=== PATIENT | male | born 1965 | race Caucasian/White ===

== ENCOUNTER 2017-09-01 05:39 | Outpatient (CLI) | payer BC, OTHER | END 2017-09-01 11:24 | LOC: PREOP 05:39 | PROVIDERS: ATTEND Internal Medicine | DX: Z01.818 Encounter for other preprocedural examination (principal); Z12.11 Encounter for screening for malignant neoplasm of colon ==

== ENCOUNTER 2017-09-08 07:51 | Day surgery (SDC) | payer BC, OTHER ==
--- NOTE | 2017-08-21 06:18 | HISTORY AND PHYSICAL ---
DATE OF SERVICE: DATE OF ADMISSION: September 08, 2017 HISTORY OF PRESENT ILLNESS: The patient is a 52-year-old white male, referred by Dr. Marianela Rod for his first screening colonoscopy. He had a friend, who sadly of colon cancer in his late 40s. He is not aware of any family history of colon cancer. He reports that he is well and he takes no medication. He denies any history of melena or bright red blood per rectum. He denies any problems with diarrhea or constipation. He reports no abdominal pain. PAST SURGICAL HISTORY: He has had endoscopic sinus surgery several decades ago and had a benign lipoma removed from his left upper arm. SOCIAL HISTORY: He works at [employer] with no past smoking history and occasional social alcohol intake. FAMILY HISTORY: Father is living with an age of 72 with a history of type 2 diabetes mellitus, diet controlled. Mother is living at age of 71. She was diagnosed with breast cancer in her 60s, but has no other health problems. PHYSICAL EXAMINATION: GENERAL: Reveals a well appearing, normal weight, white male in no acute distress. VITAL SIGNS: Blood pressure is 140/88. CHEST: Clear. CARDIOVASCULAR: Revealed a regular rate and rhythm without murmur, S3 or S4. ABDOMEN: Soft, supple without mass, organomegaly or tenderness. EXTREMITIES: Reveal no cyanosis, clubbing or edema. He has a well-healed surgical incision in the upper left arm. SKIN: Evaluation reveals no suspicious nevi. HEENT: He is a Mallampati class 2 oropharyngeal configuration. Pharynx is clear with good dentition. No erythema or exudate is noted. ASSESSMENT: The patient was set up for screening colonoscopy on September 08, 2017. Prep instructions were given and questions were answered. The patient reports that he has not had any previous screening blood studies done, so a chemistry panel, lipid panel and a PSA after discussion were ordered. Prep instructions with a Suprep kit were given. In today's evaluation, answering his questions about colonoscopy and going over prep instructions and then setting up the procedure. A little over 40 minutes of face to face care time was spent by myself and another 15 minutes of office staff time. I thank you for the referral of this pleasant gentleman. Job ID: [id number] DocumentID: [id number] Dictated Date: 08/17/2017 17:24:01 Manager Reimbursement Date: 08/17/2017 18:07:54 Dictated By: YASMEEN BARBOSA MD
[2017-09-08] MEDS ORDERED: 1/2 NS IV SOLUTION 1,000 ML IV STA (07:59)
[2017-09-08] MEDS ORDERED: MIDAZOLAM 2 MG/2 ML (VERSED) VIAL IVP PRN (08:00)
[2017-09-08] MEDS ORDERED: LIDOCAINE JELLY 2% (XYLOCAINE) 5 ML TUBE MM PRN (08:00)
[2017-09-08 08:10] VITALS: BP 132/92
--- OUTSIDE RECORDS SUMMARY | 2017-09-08 08:10 | XMS REPORT ---
Author FARAZ Copeland Organization [employer] Address Unknown Phone Unavailable Care Team Providers Care Orthopedic Assistant Name Role Phone FARAZ GARCIA CP Unavailable Allergies No Known Allergies Problems Problem Type Condition Code Onset Dates Condition Status Assessment Encounter for immunization Z23 Active Medications No Known Medications Procedures Procedure Coding System Code Date SINGLE IMMUNIZATION ADMIN CPT-4 56677 Aug 20, 2015 FLUARIX QUAD (3 & UP)-GSK-2014 CPT-4 11190 Aug 20, 2015 Results No Known Results Immunizations Vaccine Administration Date FLUARIX QUAD (3 & UP)-GSK-2014Aug 20, 2015 Summary Purpose [employer] Submission
--- NOTE | 2017-09-08 09:10 | Pre-Op Note & Conscious Sedat ---
Pre-Operative Progress Note H&P Reviewed The H&P was reviewed, patient examined and no changes noted. Date H&P Reviewed: Sep 08, 2017 Time H&P Reviewed: 09:10 Conscious Sedation Pre-Proced ASA Class: 1 Airway Mallampati Classification: ([place] appropriate class) I. II. III, IV Lungs Heart ASA score ASA 1: a normal healthy patient ASA 2: a patient with a mild systemic disease (mid diabetes, controlled hypertension, obesity ASA 3: a patient with a severe systemic disease that limits activity (angina , COPD, prior Myocardial infarction) ASA 4: a patient with an incapacitating disease that is a constant threat to life (CHF, renal failure) ASA 5: a moribund patient not expected to survive 24 hrs. (ruptured aneurysm) ASA 6: a declared brain patient whose organs are being harvested. For emergent operations, add the letter E after the classification Grade 2 Sedation Plan: Analgesia, Amnesia, Plan communicated to team members, Discussed options with patient/fam, Discussed risks with patient/fam Note The patient is an appropriate candidate to undergo the planned procedure, sedation, and anesthesia. The patient immediately re-assessed prior to indication. YASMEEN BARBOSA MD Sep 08, 2017 09:10
[2017-09-08] MEDS ORDERED: MIDAZOLAM 2 MG/2 ML (VERSED) VIAL ONE (09:28)
[2017-09-08] MEDS ORDERED: fentaNYL INJECTION 100 MCG/2 ML AMP ONE (09:28)
[2017-09-08] MEDS ORDERED: LIDOCAINE JELLY 2% (XYLOCAINE) 5 ML TUBE ONE (09:28)
[2017-09-08] MEDS: fentaNYL INJECTION 100 MCG/2 ML AMP IVP PRN ×2 (09:40→09:57)
[2017-09-08 10:40] VITALS: BP 121/71
[2017-09-08 11:05] VITALS: BP 139/96
[2017-09-08 11:35] VITALS: BP 139/96
--- NOTE | 2017-09-08 16:10 | OPERATIVE REPORT ---
DATE OF SERVICE: COLONOSCOPY SUMMARY The patient underwent screening colonoscopy today. The patient was placed in the left lateral decubitus position. Prior to undergoing colonoscopy, digital rectal evaluation was performed. Anal sphincter tone was normal and the perianal reflex was intact. Prostate was mildly enlarged, anodular and nontender to digital inspection. No abnormalities were noted on digital inspection of the anal canal or distal rectal vault. The colonoscope was then inserted into the rectum under direct visualization, advanced to the cecum. The cecum was identified by identification of the ileocecal valve and cecal strap. Photographic documentation was obtained. A careful inspection was made as the colonoscope was withdrawn. There was no evidence for internal or external hemorrhoids. The rectum was unremarkable. Present in the distal sigmoid colon as well as proximal sigmoid colon were 2 diminutive hyperplastic appearing polyps. They were photographed and biopsied and ablated and submitted for histopathology. There was no significant blood loss. No evidence for diverticular disease was noted. The descending colon, transverse colon, ascending colon and cecum were unremarkable. ASSESSMENT: Two diminutive hyperplastic appearing polyps were removed from the proximal and distal sigmoid colon today. This was an otherwise normal colonoscopy of the cecum. Digital evaluation of the prostate was compatible with mild benign prostatic hypertrophy. I would advocate consideration for repeat screening colonoscopy in 10 years as the patient is not aware of any family history of colon cancer or colon polyps. Job ID: [id number] DocumentID: [id number] Dictated Date: 09/08/2017 11:35:43 Aml Analyst Date: 09/08/2017 16:09:54 Dictated By: YASMEEN BARBOSA MD MTDD
== END 2017-09-08 11:35 | disposition home or self-care (01) ==
LOC: ENDO 07:51
PROVIDERS: ATTEND Internal Medicine
DX: Z12.11 Encounter for screening for malignant neoplasm of colon (principal); K63.5 Polyp of colon; N40.0 Benign prostatic hyperplasia without lower urinary tract symptoms

== ENCOUNTER 2022-11-11 07:37 | Day surgery (SDC) | payer BC ==
--- NOTE | 2022-11-02 07:29 | HISTORY AND PHYSICAL ---
DATE OF SERVICE: 11/11/2022 COLONOSCOPY HISTORY AND PHYSICAL HISTORY OF PRESENT ILLNESS: The patient is a 57-year-old white male here for screening colonoscopy. He is deemed at higher than average risk as his father was diagnosed with colon cancer in his late 70s. He had one another colonoscopy a little over 5 years ago, at which time he had several hyperplastic polyps removed. Early screening interval was recommended at 5 years due to family history. He reports there have been no health changes in the last 5 years. He has noted no blood in the stool. Denies abdominal pain, change in weights, shortness of breath or chest discomfort. PHYSICAL EXAMINATION: GENERAL: Reveals a white male who appeared to be in no acute distress. VITAL SIGNS: Blood pressure 130/82. HEENT: Unremarkable. Sclerae nonicteric. CHEST: Clear. CARDIAC: Reveals a regular rate and rhythm without murmur, S3, or S4. ABDOMEN: Soft, supple without mass, organomegaly, or tenderness. EXTREMITIES: Reveal no cyanosis, clubbing or edema. ASSESSMENT AND PLAN: The patient is being set up for a screening colonoscopy, prep instructions with Plenvu were given and questions were answered. Job ID: [id number] DocumentID: [id number] Dictated Date: 10/19/2022 16:08:46 Conference Planning Manager Date: 10/19/2022 16:26:00 Dictated By: YASMEEN BARBOSA MD
[~2022-11-11] VITALS: Ht 182.9 cm; Wt 90.9 kg
[2022-11-11] MEDS ORDERED: LACTATED RINGERS 1,000 ML IV STA (07:47)
--- NOTE | 2022-11-11 07:51 | Pre-Op Note & Conscious Sedat ---
Pre-Operative Progress Note Date H&P Reviewed: Nov 11, 2022 Time H&P Reviewed: 07:50 History & Physical: H&P Reviewed, Patient Examed, No changes noted Pre-Op Diagnosis: screening Conscious Sedation Pre-Proced ASA Score 1 For ASA 3 and 4: Consider anesthesia and medical clearance. Also, for patients with a history of failed moderate sedation consider anesthesia. Airway Lungs Heart ASA score ASA 1: a normal healthy patient ASA 2: a patient with a mild systemic disease (mid diabetes, controlled hypertension, obesity ASA 3: a patient with a severe systemic disease that limits activity (angina, COPD, prior Myocardial infarction) ASA 4: a patient with an incapacitating disease that is a constant threat to life (CHF, renal failure) ASA 5: a moribund patient not expected to survive 24 hrs. (ruptured aneurysm) ASA 6: a declared brain- patient whose organs are being harvested. For emergent operations, add the letter E after the classification Mallampati Classification Grade 2 Sedation Plan Analgesia, Amnesia, Plan communicated to team members, Discussed options with patient/fam, Discussed risks with patient/fam The patient is an appropriate candidate to undergo the planned procedure, sedation, and anesthesia. The patient immediately re-assessed prior to indication. YASMEEN BARBOSA MD Nov 11, 2022 07:51
[2022-11-11 07:55] VITALS: BP 178/84
[2022-11-11 09:01] VITALS: BP 118/67
--- NOTE | 2022-11-11 09:02 | Progress Note-Post Operative ---
Post-Procedure Note Physician (s)/Funeral Pre Need Consultant (s) Physician YASMEEN BARBOSA MD Pre-Procedure Diagnosis Pre-Procedure Diagnosis: screening Post-Procedure Diagnosis Post-operative diagnosis: Prior to undergoing colonoscopy digital rectal evaluation was performed. Anal sphincter tone was normal and the perianal reflexes intact. Prostate is mild to moderately enlarged and a nodular on visual inspection. No other abnormalities noted on visual inspection of the anal canal or distal rectal vault. The colonoscope was then inserted into the rectum and under direct visualization advanced to the cecum. The cecum was identified by indication of the ileocecal valve and cecal strap. Photographic documentation was obtained. A careful inspection was made as the colonoscope was withdrawn. The quality the prep was good. Findings there are no evidence for internal or external hemorrhoids in the rectum was unremarkable. 2 small sigmoid diverticulum were present with no other abnormalities being appreciated. The descending colon splenic flexure transverse colon hepatic flexure ascending colon and cecum were unremarkable. Assessment 2 small sigmoid diverticulum were present with with an otherwise normal colonoscopy to the cecum under good prep conditions. Considering family history would advocate consideration for repeat screening colonoscopy in 5 years. YASMEEN BARBOSA MD Nov 11, 2022 09:02
[2022-11-11 09:06] VITALS: BP 118/69
[2022-11-11 09:11] VITALS: BP 130/70
[2022-11-11 09:20] VITALS: BP 131/75
--- NOTE | 2022-11-11 09:32 | Anesthesia-General Post-Op ---
MAC Patient Condition Mental Status/LOC: Same as Preop Cardiovascular: Satisfactory Nausea/Vomiting: Absent Respiratory: Satisfactory Pain: Controlled Complications: Absent Post Op Complications Complications None Follow Up Care/Instructions Patient Instructions None needed. Anesthesiology Discharge Order Discharge Order Patient is doing well, no complaints, stable vital signs, no apparent adverse anesthesia problems. No complications reported per nursing. LEONOAR MASTERSON CRNA Nov 11, 2022 09:31
[2022-11-11 10:10] VITALS: BP 131/75
== END 2022-11-11 09:59 | disposition home or self-care (01) ==
LOC: ENDO 07:37
PROVIDERS: ATTEND Internal Medicine
DX: Z12.11 Encounter for screening for malignant neoplasm of colon (principal); K57.30 Diverticulosis of large intestine without perforation or abscess without bleeding; N40.0 Benign prostatic hyperplasia without lower urinary tract symptoms; Z87.19 Personal history of other diseases of the digestive system; Z80.0 Family history of malignant neoplasm of digestive organs